=== PATIENT | male | born 1975 | race Two or more races ===

== ENCOUNTER 2021-07-06 20:56 | Emergency (ER) | payer OTHER, SELFPAY ==
[2021-07-06 21:04] VITALS: BP 125/82; PULSE 101; O2SAT 100
[2021-07-06 21:19] VITALS: BP 134/77; PULSE 97; RESP 18; TEMP 37.3; O2SAT 98; BMI 39.1
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
[2021-07-06 23:33] VITALS: BP 144/80; PULSE 72; RESP 20; TEMP 36.8; O2SAT 98
[2021-07-07] MEDS: Cyclobenzaprine HCl 10 MG TABLET PO (00:10)
[2021-07-07] MEDS: Ibuprofen 600 MG TABLET PO (00:10)
== END 2021-07-07 00:18 | disposition home or self-care (01) ==
PROVIDERS: Emergency Provider Emergency Medicine Emergency Medical Services
DX: S13.9XXA Sprain of joints and ligaments of unspecified parts of neck, initial encounter (principal); S23.3XXA Sprain of ligaments of thoracic spine, initial encounter; S33.5XXA Sprain of ligaments of lumbar spine, initial encounter; V89.2XXA Person injured in unspecified motor-vehicle accident, traffic, initial encounter; Y93.9 Activity, unspecified; Y92.410 Unspecified street and highway as the place of occurrence of the external cause; Y99.9 Unspecified external cause status
CPT/HCPCS: 99283; 99284

== ENCOUNTER 2023-04-04 10:10 | Outpatient (REF) | payer OTHER, SELFPAY ==
--- NOTE | 2023-04-04 11:19 | MHC.AU.MED ---
Medical Clearance for Hearing Instrumentation Date: 04/04/23 Patient Name: Wilbur Aj JR Date of : 1975 Primary Care Provider: Dannielle Graham MD We have seen your patient on 04/04/23 and have determined that they are a candidate for amplification (See accompanying report). Specifically, they would benefit from: Hearing aid use in both ears There is a statute that addresses Medical Evaluation Requirements prior to fitting a patient with a hearing aid. According to [place] statute [facility] CMR:6.03(1), (a) General. Except as provided in 265 CMR 6.03(1)(b), a client program manager shall not sell a hearing aid unless the prospective user has presented to the client program manager a written statement signed by a licensed physician that states that the patient's hearing loss has been medically evaluated and the patient may be considered a candidate for a hearing aid. The medical evaluation must have taken place within the preceding six months. Please note: Due to the [place] Statute referenced above, we cannot accept a signature other than that of a licensed physician. BUSINESS LINE CONTROLLER and PA signatures cannot be accepted. I am in agreement with the above recommendation. There is no medical contraindication for hearing instrumentation. Physician Signature Date Physician Name (Printed)
--- NOTE | 2023-04-04 11:35 | MHC.AU.HA1 ---
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 He never wore hearing protection. 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 He used to have his hearing tested by [employer] over 20 years ago, which showed hearing loss in his right ear. However, over the years, Wilbur has noticed a progressive change in his hearing in both ears. He often has difficulty hearing and understanding, especially if a speaker has a soft voice or is further away. Wilbur is ready to pursue amplification to help ease his communication difficulties. Hearing Aid Prescription: Based on the individual?s shared listening needs, communication environments, dexterity, desire for connectivity, and personal preferences, the following prescription for amplification has been made: Right ear: Make, Model, Color: Oticon Real 2 miniRITE-R Color: Chroma Beige Battery Size: Rechargeable Forest Engineer/Slim Tube: 2/85 Type of Earmold/Dome/CShell/SlimTip: 8mm open Left ear: Left ear prescription to be same as Right Hearing Aid above: Make, Model, Color: Oticon Real 2 miniRITE-R Color: Chroma Beige Battery Size: Rechargeable Forest Engineer/Slim Tube: 2/85 Type of Earmold/Dome/CShell/SlimTip: 8mm open Plan of Care: Patient wishes to purchase hearing aids as prescribed Action Taken/Action Needed: Prior authorization to be requested. Medical Clearance to be requested from PCP/ENT. Hearing Instrument Fitting to be scheduled when materials arrive Primary Diagnosis: H90.3 Bilateral Sensorineural Hearing Loss Signature: Provider: Sandra Hassan, [facility]
== END 2023-04-04 10:11 | disposition home or self-care (01) ==
LOC: HO.SH 10:10
PROVIDERS: Visit Provider Family Medicine
DX: H90.3 Sensorineural hearing loss, bilateral (principal)
CPT/HCPCS: 92557; 92591

== ENCOUNTER 2023-10-24 10:37 | Outpatient (REF) | payer OTHER, SELFPAY ==
--- NOTE | 2023-10-24 11:52 | MHC.AU.HA2 ---
Hearing Instrument Fitting- Adult- Binaural Date of Visit: 10/24/23 Hearing Instruments Dispensed: Right Ear: Make, Model, Color, Serial Number: Oticon Real 2 miniRITE-R SN: [id number] Color: Chroma Beige Reclamation Kettle Tender Repair Warranty: 11/11/2026 Reclamation Kettle Tender Loss and Damage Warranty: 11/11/2026 [facility] Service Plan: 10/24/2024 Battery Size: Rechargeable Inside Sales Account Representative/Slim Tube: 2/85 Earmold/Dome/CShell/SlimTip: 8mm open huiazr with retention tail Type of Wax Guard: miniFit Left Ear: Make, Model, Color, Serial Number: Oticon Real 2 miniRITE-R SN: [id number] Color: Chroma Beige Reclamation Kettle Tender Repair Warranty: 11/11/2026 Reclamation Kettle Tender Loss and Damage Warranty: 11/11/2026 [facility] Service Plan: 10/24/2024 Battery Size: Rechargeable Inside Sales Account Representative/Slim Tube: 2/85 Earmold/Dome/CShell/SlimTip: 8mm open huizar dome with retention tail Type of Wax Guard: miniFit Accessories/Assistive Technology: Oticon Manager Privacy SN: [id number] Summary of Fitting: Accompanied by his . Ran feedback analyzer and real ear measures. Decreased to AM2 due to perceived static noise, likely hair over microphones or swishing of jacket. Otherwise, Wilbur reported good, balanced, and clear sound quality. Discussed care, use, and rechargeability including manually turning on/off, changing domes and wax guards, and volume control use. 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 Briefly discussed that he would need an EduMic for direct audio input. However, also advised that sound quality would not be comparable to his current in-ear monitors. Recommended removing hearing aids while playing with his band. Explained acclimatization period and importance of daily, consistent use. Paired to iPhone but not Oticon izabella. Wilbur reported he will download the izabella himself at home. Recommendations: A hearing instrument follow-up was scheduled. Diagnosis Code(s): Primary Diagnosis: H90.3 Bilateral Sensorineural Hearing Loss Signature: Provider: Sandra Hassan, [facility]
== END 2023-10-24 10:38 | disposition home or self-care (01) ==
LOC: HO.HAP 10:37
PROVIDERS: Visit Provider Family Medicine
DX: Z46.1 Encounter for fitting and adjustment of hearing aid (principal); H90.3 Sensorineural hearing loss, bilateral
CPT/HCPCS: V5011; V5020; V5160; V5261

== ENCOUNTER 2023-12-06 09:55 | Outpatient (REF) | payer OTHER, SELFPAY ==
--- NOTE | 2023-12-06 10:21 | MHC.AU.HA3 ---
Hearing Instrument Follow-Up- Binaural Date of Visit: 12/06/23 Right Ear: Make, Model, Color, Serial Number: Oticon Real 2 miniRITE-R SN: [id number] Color: Chroma Beige Radio Communications Mechanician Repair Warranty: 11/11/2026 Radio Communications Mechanician Loss and Damage Warranty: 11/11/2026 [facility] Service Plan: 10/24/2024 Battery Size: Rechargeable Music Industry Internship/Slim Tube: 2/85 Earmold/Dome/CShell/SlimTip:8mm open huizar with retention tail Type of Wax Guard: miniFit Dispensed By: Date of Fittin10/24/23 Left Ear: Make, Model, Color, Serial Number: Oticon Real 2 miniRITE-R SN: [id number] Color: Chroma Beige Radio Communications Mechanician Repair Warranty: 11/11/2026 Radio Communications Mechanician Loss and Damage Warranty: 11/11/2026 [facility] Service Plan: 10/24/2024 Battery Size: Rechargeable Music Industry Internship/Slim Tube: 2/85 Earmold/Dome/CShell/SlimTip: 8mm open huizar dome with retention tail Type of Wax Guard: miniFit Dispensed By: Date of Fittin10/24/23 Follow-Up Summary: Pt. reports left hearing aid is not amplifying, notes it comes out of the lithopone charger fully charged. Reports he has tried changing the dome but not the wax guard. Practiced changing domes and wax guards together on both aids. Listening check positive after cleaning. Recommendations: Recommendations: Hearing instrument follow-up or maintenance as needed. Diagnosis Code(s): Primary Diagnosis: H90.3 Bilateral Sensorineural Hearing Loss Signature: Provider: Sandra Tena, [facility]
== END 2023-12-06 09:56 | disposition home or self-care (01) ==
LOC: HO.HAP 09:55
PROVIDERS: Visit Provider Family Medicine
DX: Z13.89 Encounter for screening for other disorder (principal)